=== PATIENT | female | born 1995 | race Two or more races ===

== ENCOUNTER → 2024-05-07 | Outpatient (CLI) | payer MEDICAID, SELFPAY ==
--- NOTE | 2024-05-07 15:55 | XR_ITS ---
Examination: Foot bilateral, 6 views Technique: AP, oblique, lateral views each foot total 6 views Date and time of exam: May 07, 2024 1559 hours INDICATIONS: Bilateral foot pain beginning 2 weeks ago FINDINGS: Adequate bone density No fracture or dislocation involving either foot No erosive or other significant arthritic change involving either foot No plantar posterior bony calcaneal spurs IMPRESSION: No fracture or dislocation involving either foot No erosive or other significant arthritic change involving either foot Negative for pes planus
== END | disposition home or self-care (01) ==
PROVIDERS: PCP Physician Assistant; Referring Provider Physician Assistant; Visit Provider Physician Assistant
DX: M79.672 Pain in left foot (principal); M79.671 Pain in right foot
CPT/HCPCS: 73630

== ENCOUNTER 2024-06-24 09:25 | Outpatient (AMB) | payer MEDICAID, SELFPAY ==
--- NOTE | 2024-06-24 09:20 | GYNCLNT_ITS ---
Vital Signs 06/24/24 09:31 Height 1.63 m Height Method Stated Weight 139.877 kg Weight Measurement Method Standing Scale BMI 52.9 BP 124/84 Blood Pressure Source Automatic Cuff Blood Pressure Location Left Upper Arm Position Sitting Respiration 18 Pulse 96 Pulse Source Monitor Temp 97.1 F Temp Source Oral Pulse Oximetry (%) 97 Oxygen Delivery Method Room Air Allergies/Home Meds Allergies & Medications Allergies No Known Allergies Allergy (Verified 06/24/24 09:21) Medication Reconciliation No Known Home Medications 06/24/24 [History Confirmed 06/24/24] Intake Visit Data Collection New Patient or Established: Established Patient (seen at [facility] within 3 years) Reason for Visit:: control consult Seen by Clinical Staff ONLY (RN/MA): No Climatology Professor Required: No Do You Feel Safe at Home: Yes Authorities Contacted: N/A PCP or OBGYN visit in last 3 months: No Hx Now: No Are you currently on any form of Control: No Last menstrual period: 06/10/23 Pain Present Currently: No Pain Scale Used: Ceballos-Lopez/Numerical Pain scale:: 0 Smoking Status Smoking Status: Current some day smoker (marijuana vape) Cessation Counseling Provided: YAN was advised that quitting smoking is the single most important factor to protect the health of themselves and their family. Discussed the benefits of quitting smoking with patient. Encouraged patient to quit smoking and provided Cessation assistance materials and resources. Tobacco Use: Cigarette Years smoked: 10 Are you interested in Quitting?: No Would you like additional Smoking Cessation Counseling?: No Investigations Director history Investigations Director History Menstrual regularity: regular Flow: heavy Monthly: Yes How many days does period last: 7 Age at menarche: 13 Menopausal: No Currently sexually active: Yes Questionnaires Covid-19 Vaccine Questionnaire Has patient been vacinated for Covid-19 Have you been vacinated for Covid-19: Yes Date of last Covid Vaccine or Booster?: 05/29/23 PHQ-9 PHQ-2 Over the last 2 weeks, how often have you been bothered by any of the following problems? 1. Little interest or pleasure in doing things: not at all 2. Feeling down, depressed, or hopeless: not at all Total score: 0 PHQ-9 3. Trouble falling or staying asleep, or sleeping too much: Not at all 4. Feeling tired or having little energy: Not at all 5. Poor appetite or overeating: Not at all 6. Feeling bad about yourself - or that you are a failure or have let yourself or your family down: Not at all 7. Trouble concentrating on things, such as reading the newspaper or watching television: Not at all 8. Moving or speaking so slowly that other people could have noticed? - Or the opposite - being so fidgety or restless that you have been moving around a lot more than usual: not at all 9. Thoughts that you would be better off or of hurting yourself in some way: Not at all Total score: 0 Source: Developed by Drs. Lexx Liriano, Kailyn Partida, Jed oakley, with an educational lavelle from [employer]. Depression screen completed yes Social History Living Situation History Marital Status: Single Lives With: Family Housing: House Tobacco History Smoking Status: Current some day smoker (marijuana vape) Second Hand Smoke Exposure: Yes Alcohol History Alcohol Intake: Current Alcohol Intake Frequency: holidays/special occasions only Substance Use History Substance Use: marijuana Domestic Abuse History Do You Feel Safe at Home: Yes Past Medical History Past Medical History Have you ever been diagnosed with any of the following: Neurological Problems Cerebrovascular Accident (CVA): No Transient Ischemic Attacks (TIA): No Dementia: No Alzheimer's Disease: No Parkinson's Disease: No Brain Tumor: No Meningitis: No Seizures: No Guillain-Richmond Syndrome: No Cardiology Problems Myocardial Infarction: No Cardiac Arrhythmia: No Atrial Fibrillation: No Congestive Heart Failure: No Respiratory Problems Chronic Obstructive Pulmonary Disease (COPD): No Stomache/Intestinal Problems Liver Cancer: No Hepatitis: No Cirrhosis: No Pancreatic Cancer: No Pancreatitis: No Irritable Bowel: No Crohn's Disease: No Obstructive Bowel: No Hiatal Hernia: No Genital/Urinary Problems Chronic Kidney Disease: No Renal Disease: No Kidney Stones: No Polycystic Kidney Disease: No Neurogenic Bladder: No Inguinal Hernia: No Dialysis: No Prostate Cancer: No Benign Prostatic Hyperplasia: No Reproductive Problems Breast Cancer: No Endometriosis: No Fibroids: No Genital Herpes: No Gonorrhea: No Pelvic Inflammatory Disease: No Polycystic Ovarian Syndrome: No Previous Pregnancies: No Syphilis: No Testicular Cancer: No Uterine Prolapse: No Musculoskeletal Problems Muscular Dystrophy: No Myasthenia Gravis: No Marfan's Syndrome: No Bone Cancer: No Head,Eye,Nose,Throat Problems Cataracts: No Glaucoma: No Blind: No Retinal Detachment: No Endocrine Problems Diabetes Mellitus Type 1: No Diabetes Mellitus Type 2: No Hypoglycemia: No Malmo's Syndrome: No Stone's Disease: No Hyperthyroidism: No Hypothyroidism: No Thyroid Cancer: No Parathyroid Disease: No Pituitary Disease: No Systemic Lupus Erythematosus: No Syndrome of Inappropriate Antidiuretic Hormone: No Adrenal Disease: No Graves' Disease: No Blood Problems Anemia: No Leukemia: No Hemophilia: No Thalassemia: No Sickle Cell Disease: No Clotting Problems: No Psychologic Problems Schizophrenia: No Recreational Drug Use: No Bipolar Disorder: No Depression: No Anxiety: No Behavior Problems: No Self-Mutilation: No Attention Deficit Disorder: No Attention Deficit Hyperactivity Disorder: No Depression: No Post Traumatic Stress Disorder: No Eating Disorder: No Other Problems Hospitalization: No Autoimmune Disease: No Down Syndrome: No Autism: No Developmental Delay: No Cosmetic Surgery: No Shingles: No Falls: No Blood Transfusions: No Blood Transfusion Reaction: No Anesthesia Reactions: No Organ Transplant: No Chemotherapy: No Radiation Therapy: No Hyperbaric Therapy: No Surgical History Angioplasty: No Appendectomy: No Bariatric Surgery: No History of Present Illness HPI Narrative Patient presents for consultation regarding Nexplanon implant insertion. She desires to proceed with the implant but is willing to wait a couple of weeks until the clinic has the device available, as she is still mentally preparing for the procedure. Patient has no children and is seeking information about the healing process post-insertion. She inquires about the effectiveness timeline of the implant, understanding that it is effective immediately if inserted before ovulation. Patient also expresses interest in understanding the procedure for future replacements. The implant will be inserted below the bicep muscle and is flexible. Review of Systems Review of Systems Systems Reviewed: All systems reviewed, normal except as documented Exam General Limitations: no limitations General Appearance: alert, in no apparent distress, comfortable, cooperative, healthy appearing, well developed and well groomed Head Head exam: atraumatic, normocephalic and normal inspection ENT ENT exam: Present normal exam, normal oropharynx and mucous membranes moist Neck Neck exam: Present normal inspection, full ROM and trachea midline Chest Chest inspection: Present normal inspection and symmetric chest wall rise Abdominal Abdominal exam: Present soft and normal bowel sounds Back Back exam: Present normal inspection and full ROM Psych Psychiatric exam: Present normal affect and normal mood Skin Skin exam: Present warm, dry, intact and normal color Assessment & Plan Diagnosis / Problem List (1) General counseling and advice on contraceptive management: Status: Acute Plan: Contraception - Nexplanon implant: - Patient seeking Nexplanon implant for contraception. - Clinic expects to receive implant in a couple of weeks. - Patient prefers to wait for clinic to obtain implant. - No contraindications or concerns identified. - Patient has no children. Plan: - Contact patient when Nexplanon implant becomes available. - Schedule appointment for Nexplanon insertion. - Perform insertion within first 7 days of menstrual cycle for immediate effectiveness. - Provide post-insertion care instructions: ? Keep bandage in place for 2-3 days. ? No restrictions on arm use or showering. - Educate patient on: ? 3-year effectiveness of implant. ? Option for early removal if desired. ? Possibility of replacement at 3 years. ? Immediate effectiveness if inserted before ovulation. - Obtain informed consent prior to procedure. Office Procedures OB Clinic LOC & Office Proc's Nursing/Assessment Patient Status: Established Patient OB Clinic Nursing Assessment: Medication Reconciliation, Update PMH in EMR and Vital Signs OB Clinic Coordination of Care: Complex Care and Chronic Disease 1-5, Consent,records obtained, informed consent, Education Simp Pt/Fam and Staff clarify orders Established Patient Charge Established Patient Point Assignment: 85 Established Patient Point Charge: EP Level 3 (80-115) OB Clinic LOC & Office Proc's Nursing/Assessment Patient Status: Initial/New Patient OB Clinic Nursing Assessment: Medication Reconciliation OB Clinic Coordination of Care: Education Complex Pt/Fam New Patient Charge New Patient Point Assignment: 1024 New Patient Point Charge: MANAGER CASE MANAGEMENT Level 3 ([id number]) Antepartum Initial or Follow-up Antepartum Initial Visit: No Antepartum Follow up Visit: No
[2024-06-24 09:31] VITALS: BP 124/84; PULSE 96; RESP 18; TEMP 36.2; O2SAT 97; BMI 52.9
== END 2024-06-24 09:39 | disposition home or self-care (01) ==
PROVIDERS: PCP Physician Assistant; Supervising Provider Obstetrics & Gynecology; Visit Provider Obstetrics & Gynecology
DX: Z30.09 Encounter for other general counseling and advice on contraception (principal)
CPT/HCPCS: 99203; 99213; G0463

== ENCOUNTER 2024-09-02 08:59 | Outpatient (AMB) | payer MEDICAID, SELFPAY ==
[2024-09-02 09:25] VITALS: BP 128/85; PULSE 18; RESP 18; TEMP 36.2; O2SAT 98; BMI 53.4
--- NOTE | 2024-09-02 09:25 | AMB.GYNCLNOT ---
Vital Signs 09/02/24 09:25 Height 1.63 m Height Method Stated Weight 142.088 kg Weight Measurement Method Standing Scale BMI 53.4 BP 128/85 H Blood Pressure Source Automatic Cuff Blood Pressure Location Left Upper Arm Position Sitting Respiration 18 Pulse 18 L Pulse Source Monitor Temp 97.2 F Temp Source Oral Pulse Oximetry (%) 98 Oxygen Delivery Method Room Air Allergies/Home Meds Allergies & Medications Allergies No Known Allergies Allergy (Verified 09/02/24 09:26) Medication Reconciliation No Known Home Medications 06/24/24 [History Confirmed 09/02/24] Intake Visit Data Collection New Patient or Established: Established Patient (seen at [facility] within 3 years) Reason for Visit:: Nexplanon Seen by Clinical Staff ONLY (RN/MA): No Monomer Recovery Operator Required: No Do You Feel Safe at Home: Yes Authorities Contacted: N/A PCP or OBGYN visit in last 3 months: No Hx Now: No Are you currently on any form of Control: No Last menstrual period: 08/06/24 Pain Present Currently: No Pain Scale Used: Ceballos-Lopez/Numerical Pain scale:: 0 Smoking Status Smoking Status: Current some day smoker (marijuana vape) Cessation Counseling Provided: YAN was advised that quitting smoking is the single most important factor to protect the health of themselves and their family. Discussed the benefits of quitting smoking with patient. Encouraged patient to quit smoking and provided Cessation assistance materials and resources. 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 1. Little interest or pleasure in doing things: not at all 2. Feeling down, depressed, or hopeless: not at all Total score: 0 PHQ-9 3. Trouble falling or staying asleep, or sleeping too much: Not at all 4. Feeling tired or having little energy: Not at all 5. Poor appetite or overeating: Not at all 6. Feeling bad about yourself - or that you are a failure or have let yourself or your family down: Not at all 7. Trouble concentrating on things, such as reading the newspaper or watching television: Not at all 8. Moving or speaking so slowly that other people could have noticed? - Or the opposite - being so fidgety or restless that you have been moving around a lot more than usual: not at all 9. Thoughts that you would be better off or of hurting yourself in some way: Not at all Total score: 0 If you checked off any problems, how difficult have these problems made it for you to do your work, take care of things at home, or get along with other people?: not difficult at all Source: Developed by Drs. Lexx Liriano, Kailyn Partida, Jed Ramos and colleagues, with an educational lavelle from [employer]. Depression screen completed yes Social History Living Situation History Lives With: Family Housing: House Tobacco History Smoking Status: Current some day smoker (marijuana vape) Second Hand Smoke Exposure: Yes Alcohol History Alcohol Intake: Current Alcohol Intake Frequency: holidays/special occasions only Substance Use History Substance Use: marijuana Domestic Abuse History Do You Feel Safe at Home: Yes History of Present Illness HPI Wilbert Antunez, a right-handed female patient, presents for insertion of a contraceptive implant (Nexplanon). This is her first time receiving this form of control. She reports currently not using any control method and having regular menstrual periods. The patient expresses some anxiety about the insertion procedure, particularly concerning the size of the needle used. She inquires about the process and potential pain associated with the implant insertion. Harmony also asks about post-procedure care, specifically regarding showering and arm use. She mentions that the most strenuous activity she typically engages in is cross-stitching. Surgical History - Nexplanon (subdermal contraceptive implant) insertion in left arm on MonSep 02 2024 Medications and Supplements - Nexplanon (etonogestrel implant) - Subdermal implant in left arm - Contains progesterone hormone - Effective for 3 years Allergies - No known allergies to lidocaine Social History - Occupation: Engages in cross-stitching as a hobby - Hobbies: Cross-stitching Review of Systems Genitourinary: Positive for regular menstrual periods. Office Procedures OB Clinic LOC & Office Proc's Nursing/Assessment Patient Status: Established Patient OB Clinic Nursing Assessment: BP Monitoring, Medication Reconciliation, Update PMH in EMR and Vital Signs OB Clinic Coordination of Care: Consent,records obtained, informed consent, Education Simp Pt/Fam, Lab and Imaging orders and Staff clarify orders Established Patient Charge Established Patient Point Assignment: 90 In Clinic Bedside tests Bedside HCG: Yes In Clinic Procedures Insertion of Control other NOT IUD's: Yes Urine HCG Ambulatory Location Ambulatory Dept Location: OB Clinic Urine HCG HCG: Yes Results Urine HCG Urine HCG Negative Last Edit by Eda Diaz MA on 09/02/24 09:46 Assessment & Plan Diagnosis / Problem List (1) General counseling and advice on contraceptive management: Status: Acute (2) Nexplanon insertion: Status: Acute Plan Harmony, a right-handed female patient, presents for Nexplanon contraceptive implant insertion. Contraception Assessment: Patient is seeking long-term contraception and has opted for Nexplanon implant. She has never used this method before. Currently, she is not using any form of control. Her menstrual cycles are regular, which suggests a lower likelihood of experiencing irregular bleeding as a side effect of the implant. The patient has no known allergies to lidocaine or other medications used in the procedure. Plan: - Inserted Nexplanon contraceptive implant in the left arm, under the biceps muscle - Provided patient education on: - Mechanism of action: progesterone-only hormone release, preventing ovulation and forming a cervical plug - Duration of effectiveness: 3 years - Potential side effects: changes in menstrual bleeding patterns (including amenorrhea, telephone clerk telegraph office periods, or irregular bleeding) - Post-insertion care: - Avoid lifting weights for 24 hours - Remove pressure bandage after 2 hours - Can shower normally, replace bandage if it gets wet - Allow 2 months for the implant to settle - Follow-up instructions: - Return to clinic if experiencing any issues or side effects - Option to remove before 3 years if desired - Can replace with a new implant after 3 years if satisfied CREDIT CARD ASSOCIATE: BC insert/removal Procedure Notes Consent obtained: yes-written IUD type inserted: Other (describe) (Nexplanon) IUD Lot and Exp: Lot#: [id number] Expiration date: 09/2026 Procedure Notes:: Informed consent was obtained. The patient was placed in a supine position with the non-dominant arm flexed at the elbow and externally rotated to expose the inner upper arm. The planned insertion site was located approximately 8?10 cm proximal to the medial epicondyle of the humerus on the inner aspect of the arm, avoiding neurovascular structures. After marking the insertion site, the area was cleansed with antiseptic solution and a local anesthetic (1% lidocaine) was infiltrated subdermally. The Nexplanon applicator was then inserted into the subdermal space at the marked site, using sterile technique. The implant was deployed and palpated along its entire length to confirm proper placement. The site was cleansed and dressed with a sterile pressure bandage. Post-Procedure Counseling: The patient was counseled on expected side effects, including irregular bleeding or amenorrhea. She was advised to monitor the insertion site for signs of infection (redness, swelling, discharge) or migration. Back-up contraception is not required if the implant was inserted within the first 5 days of the menstrual cycle; otherwise, back-up protection for 7 days was advised. She was informed that the implant is effective for up to 3 years. No complications noted. Implant placement confirmed by palpation. Patient tolerated the procedure well.
== END 2024-09-02 10:14 | disposition home or self-care (01) ==
LOC: HODSOBC 08:59
PROVIDERS: PCP Physician Assistant; Referring Provider Physician Assistant; Supervising Provider Obstetrics & Gynecology; Visit Provider Obstetrics & Gynecology
DX: Z30.017 Encounter for initial prescription of implantable subdermal contraceptive (principal); F17.210 Nicotine dependence, cigarettes, uncomplicated; Z71.6 Tobacco abuse counseling
CPT/HCPCS: 58300; 81025; J3490; J7301

== ENCOUNTER 2024-09-25 13:45 | Emergency (ER) | payer MEDICAID, SELFPAY ==
--- NOTE | 2024-09-25 13:48 | XR_ITS ---
Examination: Humerus 2 views left Technique: Humerus, AP lateral 2 views Date and time of exam: September 25, 2024 1413 hours INDICATIONS: Status post control implant 2 weeks ago FINDINGS: Intact humerus, no shoulder dislocation Nexplanon implant noted in the soft tissue lower medial left arm IMPRESSION: Nexplanon implant in satisfactory position
[2024-09-25 14:07] VITALS: BP 112/79; PULSE 87; RESP 18; TEMP 37.4; O2SAT 97; BMI 53.1
--- NOTE | 2024-09-25 14:58 | PD.EDADULT ---
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 placement of Nexplanon Limitations: no limitations Related Data Home Medications ?Medication ?Instructions ?Recorded ?Confirmed No Known Home Medications 06/24/24 09/02/24 Allergies Allergy/AdvReac Type Severity Reaction Status Date / Time No Known Allergies Allergy Verified 09/25/24 13:49 Review of Systems Review of Systems Systems Reviewed: All systems reviewed, normal except as documented Constitutional Constitutional: Reports system reviewed and no additional complaints, except as documented, Denies fever(s) and Denies headache(s) Eyes Eyes: Reports system reviewed and no additional complaints, except as documented and Denies blurry vision ENT Ears, Nose, Mouth, and Throat: Reports system reviewed and no additional complaints, except as documented, Denies headache(s), Denies nasal congestion and Denies nasal discharge Cardiovascular Cardiovascular: Reports system reviewed and no additional complaints, except as documented, Denies chest pain and Denies dyspnea Respiratory Respiratory: Reports system reviewed and no additional complaints, except as documented, Denies chest congestion, Denies cough and Denies dyspnea Gastrointestinal Gastrointestinal: Reports system reviewed and no additional complaints, except as documented and Denies abdominal pain Integumentary/Breasts Skin/Breast: Reports system reviewed and no additional complaints, except as documented, Denies rash and Reports other (Here for Nexplanon placement) Neurologic Neurologic: Reports system reviewed and no additional complaints, except as documented, Reports as per HPI and Denies headache(s) Past Medical History Past Medical History NEUROLOGIC: Negative Neurological Disorders CARDIAC: Negative Cardiac Disorders ED Exam General Limitations: Present no limitations General appearance: Present alert and in no apparent distress Head Head exam: Present atraumatic Eye Eye exam: Present normal appearance, PERRL and EOMI ENT ENT exam: Present normal exam, normal oropharynx and mucous membranes moist Neck Neck exam: Present normal inspection, full ROM and trachea midline Chest Chest inspection: Present normal inspection and symmetric chest wall rise Respiratory Respiratory exam: Present normal lung sounds bilaterally Cardiovascular Cardiovascular exam: Present regular rate, normal rhythm and normal heart sounds Abdominal Exam Abdominal exam: Present soft and normal bowel sounds Extremities Exam Extremities exam: Present normal inspection, full ROM and normal capillary refill; Absent tenderness Back Exam Back exam: Present normal inspection and full ROM Neurological Exam Neurological exam: Present alert, oriented X3 and CN II-XII intact Psychiatric Psychiatric exam: Present normal affect and normal mood Skin Skin exam: Present warm, dry, intact and normal color Course Quality Measures none Orders Category Date Time Status XR humerus LT MIN 2V Stat Exams 09/25/24 13:48 Completed Vital Signs Vital signs: Vital Signs Temperature 99.4 F 09/25/24 14:07 Pulse Rate 87 09/25/24 14:07 Respiratory Rate 18 09/25/24 14:07 Blood Pressure 112/79 09/25/24 14:07 Pulse Oximetry (%) 97 09/25/24 14:07 Oxygen Delivery Method Room Air 09/25/24 14:07 O2 saturation 97% on room air with normal Discharge Plan Plan Patient Disposition: HOME (Self Care) Discharge Disposition comment: stable Prescriptions/Referrals Prescriptions/Med Rec: No Action No Known Home Medications Referrals: Maryuri Sheehan PA-C [Primary Care Provider] - In 1 week Problem List Clinical Impression: Nexplanon insertion Patient/Caregiver Discharge Instructions Education Materials: How Control Works Additional Instructions: Please follow-up with your CUTTING MACHINE OFFBEARER Dr. 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 Last called me and asked me to do an x-ray of the patient's arm to confirm there is correct placement of the Nexplanon X-ray obtained Nexplanon is in place no redness or evidence of infection Patient discharged home in no distress to follow-up with primary care doctor in the next 24 to 48 hours and for any worsening symptoms to return to the ER immediately Clinical Information Provided by patient Medical Records Reviewed [facility] Meds/Rx Considered, not Ordered None Labs/Rad/Tests considered, not Ordered None Chronic Illness/Social Conditions which may negatively complicate care or outcome(s)-explain: None or not applicable EKG EKG not done Lab Interpretation Labs: none Imaging Imaging interpretation: interpreted by me Medication Administration(s) none Diagnosis Differential diagnosis: Displaced Nexplanon, Nexplanon placement Dispositon Disposition: Discharge Home
== END 2024-09-25 15:04 | disposition home or self-care (01) ==
PROVIDERS: Emergency Provider Emergency Medicine; PCP Physician Assistant
DX: Z30.46 Encounter for surveillance of implantable subdermal contraceptive (principal)
CPT/HCPCS: 73060; 99283

== ENCOUNTER 2024-09-26 14:58 | Outpatient (AMB) | payer MEDICAID, SELFPAY ==
[2024-09-26 15:07] VITALS: BP 129/93; PULSE 90; RESP 18; TEMP 36.9; O2SAT 98; BMI 54.3
--- NOTE | 2024-09-26 15:07 | GYNCLNT_ITS ---
Vital Signs 09/26/24 15:07 Height 1.63 m Height Method Stated Weight 144.469 kg Weight Measurement Method Standing Scale BMI 54.3 BP 129/93 H Blood Pressure Source Automatic Cuff Blood Pressure Location Right Upper Arm Position Sitting Respiration 18 Pulse 90 Pulse Source Monitor Temp 98.4 F Temp Source Oral Pulse Oximetry (%) 98 Oxygen Delivery Method Room Air Allergies/Home Meds Allergies & Medications Allergies No Known Allergies Allergy (Verified 09/30/24 17:32) Intake Visit Data Collection New Patient or Established: Established Patient (seen at [facility] within 3 years) Reason for Visit:: EMERGENCY ROOM FOLLOW UP Seen by Clinical Staff ONLY (RN/MA): No Investment Accountant Required: No Do You Feel Safe at Home: Yes Authorities Contacted: N/A PCP or OBGYN visit in last 3 months: Yes Hx Now: No Are you currently on any form of Control: Yes Pain Present Currently: No Pain Scale Used: Ceballos-Lopez/Numerical Pain scale:: 0 Smoking Status Smoking Status: 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 1. Little interest or pleasure in doing things: not at all 2. Feeling down, depressed, or hopeless: not at all Total score: 0 PHQ-9 3. Trouble falling or staying asleep, or sleeping too much: Not at all 4. Feeling tired or having little energy: Not at all 5. Poor appetite or overeating: Not at all 6. Feeling bad about yourself - or that you are a failure or have let yourself or your family down: Not at all 7. Trouble concentrating on things, such as reading the newspaper or watching television: Not at all 8. Moving or speaking so slowly that other people could have noticed? - Or the opposite - being so fidgety or restless that you have been moving around a lot more than usual: not at all 9. Thoughts that you would be better off or of hurting yourself in some way: Not at all Total score: 0 Source: Developed by Drs. Lexx Liriano, Kailyn Partida, Jed Ramos and colleagues, with an educational lavelle from [employer]. Depression screen completed yes Social History Living Situation History Lives With: Family Housing: House Tobacco History Smoking Status: Never smoker Second Hand Smoke Exposure: Yes Alcohol History Alcohol Intake: Current Alcohol Intake Frequency: holidays/special occasions only Substance Use History Substance Use: marijuana Domestic Abuse History Do You Feel Safe at Home: Yes History of Present Illness HPI Narrative Patient presents for follow-up regarding her Nexplanon implant in her left arm. She recently underwent an X-ray in the emergency department to assess the implant's position, which was found to be satisfactory. The patient reports that her left arm discomfort has improved, stating Right now it doesn't feel too bad at all. She mentions taking Tylenol about an hour ago, which may have contributed to the reduced pain. Harmony's recent healthcare interaction includes an emergency department visit yesterday for an X-ray of her left arm, which took approximately an hour and a half. The results showed that the Nexplanon implant is in a satisfactory position. She has a history of Nexplanon implant insertion, though the date is not specified. The patient uses [facility] [address] as her pharmacy. She is currently taking Tylenol for pain relief, which she took about an hour before the appointment. Patient reports positive for left arm discomfort in the musculoskeletal system, which has improved with Tylenol. Exam General General Appearance: alert, in no apparent distress and healthy appearing Head Head exam: atraumatic Neck Neck exam: Present normal inspection and trachea midline Chest Chest inspection: Present normal inspection and symmetric chest wall rise External exam: Present normal external exam; Absent tenderness Neuro Neurological exam: Present oriented X3 Psych Psychiatric exam: Present normal affect and normal mood Office Procedures OB Clinic LOC & Office Proc's Nursing/Assessment Patient Status: Established Patient OB Clinic Nursing Assessment: Medication Reconciliation, Update PMH in EMR and Vital Signs OB Clinic Coordination of Care: Complex Care and Chronic Disease 1-5, Consent,records obtained, informed consent, Education Simp Pt/Fam, Results/Orders obtained and Staff clarify orders Established Patient Charge Established Patient Point Assignment: 90 Established Patient Point Charge: EP Level 3 (80-115) Assessment & Plan Diagnosis / Problem List (1) Arm pain: Status: Acute Assessment and Plan: Nexplanon-related discomfort Plan: - Prescribe scheduled anti-inflammatory medication (ibuprofen or Tylenol) for 3- 4 days. - Prescribe low-dose antibiotic to address potential superficial skin infection. - Schedule telephone follow-up visit in 1 week to reassess pain and overall status. - If symptoms persist or worsen, plan for in-person evaluation and potential implant removal. - Medications to be sent to [facility] pharmacy on [address]. (2) Cellulitis of arm, left: Status: Acute
== END 2024-09-26 15:27 | disposition home or self-care (01) ==
LOC: HODSOBC 14:58
PROVIDERS: PCP Obstetrics & Gynecology; Referring Provider Obstetrics & Gynecology; Supervising Provider Obstetrics & Gynecology; Visit Provider Obstetrics & Gynecology
DX: Z30.46 Encounter for surveillance of implantable subdermal contraceptive (principal); T85.848A Pain due to other internal prosthetic devices, implants and grafts, initial encounter; M79.602 Pain in left arm; Y84.8 Other medical procedures as the cause of abnormal reaction of the patient, or of later complication, without mention of misadventure at the time of the procedure
CPT/HCPCS: 99213; G0463

== ENCOUNTER 2024-10-10 14:18 | Outpatient (AMB) | payer MEDICAID, SELFPAY ==
--- NOTE | 2024-10-10 14:53 | AMB.GYNCLNOT ---
Allergies/Home Meds Allergies & Medications Allergies No Known Allergies Allergy (Verified 10/10/24 14:59) Medication Reconciliation No Known Home Medications 10/10/24 [History Confirmed 10/10/24] Intake Visit Data Collection New Patient or Established: Established Patient [place] [facility] [place] Reason for Visit:: telemed Consent obtained for Telemed Visit: Yes Seen by Clinical Staff ONLY (RN/MA): No Event Coordinator Required: No Do You Feel Safe at Home: Yes Authorities Contacted: N/A PCP or OBGYN visit in last 3 months: Yes Date of Last PCP or OBGYN visit: 09/25/24 Hx Now: No Are you currently on any form of Control: No Pain Present Currently: No Pain Scale Used: Ceballos-Lopez/Numerical Pain scale:: 0 Smoking Status Smoking Status: Never smoker Pharmacy Sales Assistant history Pharmacy Sales Assistant History Menstrual regularity: regular Flow: normal Monthly: Yes Age at menarche: 15 Menopausal: No Currently sexually active: Yes 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 1. Little interest or pleasure in doing things: not at all 2. Feeling down, depressed, or hopeless: not at all Total score: 0 PHQ-9 3. Trouble falling or staying asleep, or sleeping too much: Not at all 4. Feeling tired or having little energy: Not at all 5. Poor appetite or overeating: Not at all 6. Feeling bad about yourself - or that you are a failure or have let yourself or your family down: Not at all 7. Trouble concentrating on things, such as reading the newspaper or watching television: Not at all 8. Moving or speaking so slowly that other people could have noticed? - Or the opposite - being so fidgety or restless that you have been moving around a lot more than usual: not at all 9. Thoughts that you would be better off or of hurting yourself in some way: Not at all Total score: 0 If you checked off any problems, how difficult have these problems made it for you to do your work, take care of things at home, or get along with other people?: not difficult at all Source: Developed by Drs. Lexx Liriano, Kailyn Partida, Jed Ramos and colleagues, with an educational lavelle from [employer]. Depression screen completed yes Social History Living Situation History Lives With: Family Housing: House Tobacco History Smoking Status: Never smoker Second Hand Smoke Exposure: Yes Alcohol History Alcohol Intake: Current Alcohol Intake Frequency: holidays/special occasions only Substance Use History Substance Use: marijuana Domestic Abuse History Do You Feel Safe at Home: Yes History of Present Illness HPI Narrative Patient presents for follow-up: Patient has WebLayersplanon site. Patient now reports back pain has resolved. She was sent into the ER and x-ray of her arm was done which was within normal limits. Exam Narrative Physical exam: No exam performed due to virtual Office Procedures OB Clinic LOC & Office Proc's Nursing/Assessment Patient Status: Established Patient OB Clinic Nursing Assessment: Medication Reconciliation and Update PMH in EMR OB Clinic Coordination of Care: Education Complex Pt/Fam, Consent,records obtained, informed consent, Lab and Imaging orders, Results/Orders obtained and Staff clarify orders Established Patient Charge Established Patient Point Assignment: 70 Telehealth If patient is seen using Teleconference methods, complete New/Est section, but DO NOT jerzy points only jerzy the correct Telemed visit type Telemed Phone/Video with patient at home & Dr,PA,TRANSMISSION INSPECTOR: Yes Assessment & Plan Diagnosis / Problem List (1) Cellulitis of arm, left: Status: Acute (2) Arm pain: Status: Acute Plan Patient was advised to complete her course of antibiotics [id number] ibuprofen as needed No further intervention from a gynecologic standpoint recommended
== END 2024-10-10 14:44 | disposition home or self-care (01) ==
LOC: HODSOBC 14:18
PROVIDERS: PCP Obstetrics & Gynecology; Referring Provider Obstetrics & Gynecology; Supervising Provider Obstetrics & Gynecology; Visit Provider Obstetrics & Gynecology
DX: L03.114 Cellulitis of left upper limb (principal)
CPT/HCPCS: 99212; G0463

== ENCOUNTER → 2025-01-01 | Outpatient (CLI) | payer MEDICAID, SELFPAY ==
--- NOTE | 2025-01-01 08:20 | XR_ITS ---
Examination: Wrist, right 3 views Technique: Wrist AP, oblique, lateral 3 views Date and time of exam: January 01, 2025, 0828 hours INDICATIONS: Right wrist pain beginning 3 weeks ago. FINDINGS: No fracture or dislocation. No erosive or other significant arthritic change. IMPRESSION: No erosive or other significant arthritic change
== END | disposition home or self-care (01) ==
PROVIDERS: PCP Physician Assistant; Referring Provider Physician Assistant; Visit Provider Physician Assistant
DX: M25.531 Pain in right wrist (principal)
CPT/HCPCS: 73110